=== PATIENT | female | born 1995 | race Two or more races ===

== ENCOUNTER 2016-06-11 12:14 | Emergency (ER) | payer OTHER ==
[2016-06-11 12:17] VITALS: RESP 16; TEMP 98.2
[2016-06-11] MEDS ORDERED: ONDANSETRON 4 MG/2 ML VIAL IVP ONE (12:29)
[2016-06-11] MEDS ORDERED: HYDROmorphONE/DILAUDID 1 MG/ML SYR IVP ONE (12:29)
[2016-06-11] MEDS ORDERED: NS 1,000 ML IV ONE (12:29)
[2016-06-11 12:57] LABS: % IMMATURE GRANULYOCYTES 0.3 % (0.0-1.1); ABSOLUTE IMMATURE GRANULOCYTES 0.02 10^3/uL (0.00-0.10); ADD DIFF? NO; ADD MORPH? NO; ADD SCAN? NO; ATYPICAL LYMPHOCYTE FLAG 10 (0-99); FRAGMENT RBC FLAG 0 (0-99); HEMATOCRIT 41.9 % (38.0-47.0); HEMOGLOBIN 14.4 g/dL (12.6-16.3); LEFT SHIFT FLG 10 (0-99); LIPEMIA HEMOLYSIS FLAG 90 (0-99); MEAN CELL HEMOGLOBIN 28.7 pg (27.9-34.1); MEAN CELL HEMOGLOBIN CONCENTR. 34.4 g/dL (32.4-36.7); MEAN CELL VOLUME 83.5 fL (81.5-99.8); MEAN PLATELET VOLUME 9.8 fL (8.7-11.7); PLATELET CLUMPS FLAG 0 (0-99); PLATELET COUNT 245 10^3/uL (150-400); RED BLOOD CELL COUNT 5.02 10^6/uL (4.18-5.33); RED CELL DISTRIBUTION WIDTH 12.6 % (11.5-15.2)
--- NOTE | 2016-06-11 13:03 | EDPHY ---
H & P Stated Complaint: RLQ PAIN Time Seen by Provider: 06/11/16 12:20 HPI/ROS: CHIEF COMPLAINT: Right lower quadrant abdominal pain HISTORY OF PRESENT ILLNESS: 20-year-old female presents emergency department complaining of right lower quadrant abdominal pain for the last 5 days. Patient reports this has been worsening. Her pain is a constant ache with intermittent sharp pains. She reports nausea, 1 episode of emesis today. She denies diarrhea. Patient denies back pain, she denies urinary frequency, urgency or dysuria. No fevers. No chest pain or shortness of breath. Patient denies vaginal discharge. No aggravating or alleviating symptoms. REVIEW OF SYSTEMS: A comprehensive 10 point review of systems is otherwise negative aside from elements mentioned in the history of present illness. Source: Patient Exam Limitations: No limitations - Personal History LMP (Females 10-55): 22-28 Days Ago Current Tetanus/Diphtheria Vaccine: Yes - Medical/Surgical History Hx Asthma: No Hx Chronic Respiratory Disease: No Hx Diabetes: No Hx Cardiac Disease: No Hx Renal Disease: No Hx Cirrhosis: No Hx Alcoholism: No Hx HIV/AIDS: No Hx Splenectomy or Spleen Trauma: No - Social History Smoking Status: Never smoked - Physical Exam Exam: Physical Exam Gen: Alert and Oriented, NAD HEENT: PERRL, moist mucous membranes NECK: no meningismus CV: regular rate and regular rhythm PULM: CTAB, no wheezes ABDOMEN: Periumbilical and right lower quadrant mild tenderness to palpation, no guarding, no masses, negative Rovsing's BACK: No CVA tenderness NEURO: Neurologically grossly intact EXTREMITIES: normal appearing SKIN: no rash or break in skin on exposed skin PSYCH: answers questions appropriately. Constitutional: Initial Vital Signs Temperature (C) 36.8 C 06/11/16 12:16 Heart Rate 70 06/11/16 12:16 Respiratory Rate 16 06/11/16 12:16 Blood Pressure 134/91 H 06/11/16 12:16 O2 Sat (%) 98 06/11/16 12:16 O2 Delivery Mode Room Air Allergies/Adverse Reactions: No Known Allergies Allergy (Unverified 06/11/16 12:16) Home Medications: Medication Instructions Recorded Ondansetron Odt [Zofran Odt] 4 mg PO Q6-8PRN PRN #8 tab 04/21/17 Tamsulosin HCl [Flomax 0.4 MG (*)] 0.4 mg PO DAILY #7 cap 06/11/16 oxyCODONE/APAP 5/325 [Percocet 1 tab PO Q4-6PRN PRN #12 tab 06/11/16 5/325] Medical Decision Making - Diagnostics Imaging Results: Imaging Impressions Abdomen Ultrasound 06/11/16 13:00 Impression: 1. Nondiagnostic assessment of the appendix. 2. Right ureteronephrosis with a suspected obstructing stone at the ureterovesical junction. This will be better evaluated with subsequent unenhanced CT imaging. Findings were discussed with Mary Salazar NP at 14:37, on 06/11/2016. Abdomen/Pelvis CT 06/11/16 13:45 Impression: 1. Severe right hydroureteronephrosis secondary to a 4 x 5 x 4 mm distal right ureterolith near the ureterovesical junction. 2. Normal CT appearance of the retrocecal appendix. 3. Cholelithiasis, without cholecystitis or bile duct dilatation. Note: Given the presence of right renal collecting system stone and cholelithiasis, it may be worthwhile to check a serum calcium and parathormone level. Attention: This CT examination is specifically designed to evaluate patients who are clinically suspected of having acute obstructive uropathy. This examination does not use radiographic contrast, and as such, provides only a limited evaluation of the abdomen, pelvis, and retroperitoneum. If there is further clinical suspicion for pathological conditions other than obstructive uropathy, a complete CT evaluation of the abdomen and pelvis utilizing intravenous, oral, and rectal contrast should be considered. Findings and recommendations were discussed with Mary Salazar NP at 14:47 , on 06/11/2016. ED Course/Re-evaluation: IV established, CBC, chemistry panel, test, urinalysis, right lower quadrant ultrasound ordered. Patient is given IV pain medication and nausea medicine. CBC and chemistry panel are unremarkable, she has normal renal function, urinalysis shows 50-182 RBCs, no WBCs. CT abdomen pelvis without contrast ordered to evaluate for ureteral calculi. Patient is given 15 mg of IV ketorolac. 3pm-CT abd pelvis shows a 4 x 5 x 4 mm stone in the right UVJ With severe hydronephrosis. the patient has no evidence of infection, she is afebrile, no elevated white blood cell count, no white blood cells in urine. patient reports her pain has much improved after the pain medications and Dilaudid. She will be discharged home with a prescription for Percocet, Zofran, Flomax. She will be given a urologist for follow-up. She is given strict return precautions for fevers, vomiting, pain that is not controlled. I discussed with the patient the finding of multiple gallstones in the recommendation to follow up with her primary care doctor to evaluate for a parathyroid adenoma. the patient agrees with this plan and is comfortable with this plan. Differential Diagnosis: The differential diagnosis for the patient's abdominal pain included but was not limited to ovarian cyst, pelvic inflammatory disease, ovarian torsion, urinary tract infection, ectopic , cholecystitis, Renal calculi,and appendicitis. - Data Points Laboratory Results: Laboratory Results 06/11/16 12:40 06/11/16 12:40 06/11/16 06/11/16 06/11/16 13:00 12:40 12:40 WBC RBC Hgb Hct MCV MCH MCHC RDW Plt Count MPV Neut % (Auto) Lymph % (Auto) [place] % (Auto) Eos % (Auto) Baso % (Auto) Nucleat RBC Rel Count Absolute Neuts (auto) Absolute Lymphs (auto) Absolute Monos (auto) Absolute Eos (auto) Absolute Basos (auto) Absolute Nucleated RBC Immature Gran % Immature Gran # Sodium 139 mEq/L mEq/L (134-144) Potassium 3.5 mEq/L mEq/L (3.5-5.2) Chloride 104 mEq/L mEq/L (97-110) Carbon Dioxide 25 mEq/l mEq/l (22-31) Anion Gap 10 mEq/L mEq/L (8-16) BUN 9 mg/dL mg/dL (7-23) Creatinine 0.6 mg/dL mg/dL (0.6-1.0) Estimated GFR > 60 Glucose 100 mg/dL mg/dL (70-100) Calcium 9.6 mg/dL mg/dL (8.5-10.4) Beta HCG, Qual NEGATIVE Urine Color YELLOW Urine Appearance HAZY Urine pH 5.0 (5.0-7.5) Ur Specific [place] 1.016 (1.002-1.030) Urine Protein NEGATIVE (NEGATIVE) Urine Ketones NEGATIVE (NEGATIVE) Urine Blood 3+ H (NEGATIVE) Urine Nitrate NEGATIVE (NEGATIVE) Urine Bilirubin NEGATIVE (NEGATIVE) Urine Urobilinogen NEGATIVE EU EU (0.2-1.0) Ur Leukocyte Esterase NEGATIVE (NEGATIVE) Urine RBC 50-182 /hpf H /hpf (0-3) Urine WBC 1-3 /hpf /hpf (0-3) Ur Epithelial Cells TRACE /lpf /lpf (NONE-1+) Urine Bacteria TRACE /hpf H /hpf (NONE SEEN) Urine Mucus TRACE /lpf /lpf (NONE-1+) Urine Yeast PRESENT /hpf /hpf (NONE SEEN) Ur Culture Indicated? INDICATED H (NI) Urine Glucose NEGATIVE (NEGATIVE) 06/11/16 12:40 WBC 7.34 10^3/uL 10^3/uL (3.80-9.50) RBC 5.02 10^6/uL 10^6/uL (4.18-5.33) Hgb 14.4 g/dL g/dL (12.6-16.3) Hct 41.9 % % (38.0-47.0) MCV 83.5 fL fL (81.5-99.8) MCH 28.7 pg pg (27.9-34.1) MCHC 34.4 g/dL g/dL (32.4-36.7) RDW 12.6 % % (11.5-15.2) Plt Count 245 10^3/uL 10^3/uL (150-400) MPV 9.8 fL fL (8.7-11.7) Neut % (Auto) 70.4 % % (39.3-74.2) Lymph % (Auto) 24.4 % % (15.0-45.0) [place] % (Auto) 4.5 % % (4.5-13.0) Eos % (Auto) 0.1 % L % (0.6-7.6) Baso % (Auto) 0.3 % % (0.3-1.7) Nucleat RBC Rel Count 0.0 % % (0.0-0.2) Absolute Neuts (auto) 5.17 10^3/uL 10^3/uL (1.70-6.50) Absolute Lymphs (auto) 1.79 10^3/uL 10^3/uL (1.00-3.00) Absolute Monos (auto) 0.33 10^3/uL 10^3/uL (0.30-0.80) Absolute Eos (auto) 0.01 10^3/uL L 10^3/uL (0.03-0.40) Absolute Basos (auto) 0.02 10^3/uL 10^3/uL (0.02-0.10) Absolute Nucleated RBC 0.00 10^3/uL 10^3/uL (0-0.01) Immature Gran % 0.3 % % (0.0-1.1) Immature Gran # 0.02 10^3/uL 10^3/uL (0.00-0.10) Sodium Potassium Chloride Carbon Dioxide Anion Gap BUN Creatinine Estimated GFR Glucose Calcium Beta HCG, Qual Urine Color Urine Appearance Urine pH Ur Specific [place] Urine Protein Urine Ketones Urine Blood Urine Nitrate Urine Bilirubin Urine Urobilinogen Ur Leukocyte Esterase Urine RBC Urine WBC Ur Epithelial Cells Urine Bacteria Urine Mucus Urine Yeast Ur Culture Indicated? Urine Glucose Medications Given: Discontinued Medications Hydromorphone HCl (Dilaudid) 0.5 mg IVP EDNOW ONE Stop: 06/11/16 12:30 Last Admin: 06/11/16 12:35 Dose: 0.5 mg Sodium Chloride (Ns) 1,000 mls @ 0 mls/hr IV EDNOW ONE PRN Reason: Wide Open Stop: 06/11/16 12:30 Last Admin: 06/11/16 12:35 Dose: 1,000 mls Ketorolac Tromethamine (Toradol) 15 mg IVP EDNOW ONE Stop: 06/11/16 13:46 Last Admin: 06/11/16 14:01 Dose: 15 mg Ondansetron HCl (Zofran) 4 mg IVP EDNOW ONE Stop: 06/11/16 12:30 Last Admin: 06/11/16 12:35 Dose: 4 mg Departure - Departure Disposition: Home, Routine, Self-Care Clinical Impression: Right ureteral calculus, Gall stones Condition: Good Instructions: Kidney Stones (ED) Additional Instructions: Kidney stone: Take Percocet as needed for severe pain. 1 tablet every 4-6 hours as needed Use Zofran as needed for nausea. 1 tablet every 6-8 hours as needed Take ibuprofen 600 mg every 6-8 hours as needed for moderate pain. This will also help with inflammation. Take Flomax as directed. 1 tablet daily for 7 days Followup with urology. Call today to schedule this appointment. Return to the emergency department if you have worsening pain, fevers, persistent vomiting, or other concerns. An incidental finding on the CT scan seen by the radiologist is multiple gallstones. It is recommended you follow up with your primary care doctor to have a serum calcium and parathyroid hormone level drawn to evaluate for a parathyroid adenoma. Call to schedule this appointment. Referrals: FORREST MCHUGH [Other] - As per Instructions Eliazar Narvaez MD [Medical Doctor] - As per Instructions (Urologist on-call) Prescriptions: Ondansetron Odt [Zofran Odt] 4 mg PO Q6-8PRN PRN #8 tab PRN Reason: Nausea/Vomiting, Can'T Take Po oxyCODONE/APAP 5/325 [Percocet 5/325] 1 tab PO Q4-6PRN PRN #12 tab PRN Reason: Pain, Severe Tamsulosin HCl [Flomax 0.4 MG (*)] 0.4 mg PO DAILY #7 cap
[2016-06-11 13:09] LABS: ANION GAP 10 mEq/L (8-16); CALCIUM 9.6 mg/dL (8.5-10.4); CARBON DIOXIDE 25 mEq/l (22-31); CHLORIDE 104 mEq/L (97-110); CREATININE 0.6 mg/dL (0.6-1.0); GLOMERULAR FILTRATION RATE > 60; GLUCOSE 100 mg/dL (70-100); POTASSIUM 3.5 mEq/L (3.5-5.2); SODIUM 139 mEq/L (134-144)
[2016-06-11 13:16] LABS: COLOR YELLOW; LEUKOCYTE ESTERASE,URINE NEGATIVE (NEGATIVE); NITRITE,URINE NEGATIVE (NEGATIVE)
[2016-06-11 13:25] LABS: BACTERIA TRACE /hpf (NONE SEEN); MUCUS TRACE /lpf (NONE-1+); RBC,URINE 50-182 /hpf (0-3); YEAST PRESENT /hpf (NONE SEEN)
[2016-06-11] MEDS ORDERED: KETOROLAC 15 MG/1 ML SDV IVP ONE (13:45)
[2016-06-11 15:57] VITALS: BP 110/61; PULSE 59; O2SAT 96
== END 2016-06-11 16:38 | disposition home or self-care (01) ==
DX: K80.20 Calculus of gallbladder without cholecystitis without obstruction (principal); N20.1 Calculus of ureter
CPT/HCPCS: 96374; J1170; J1885; J2405